=== PATIENT | female | born 1975 | race Asian ===

== ENCOUNTER 2021-01-11 21:01 | Emergency (ER) | payer BC ==
[~2021-01-11] VITALS: Ht 162.6 cm; Wt 63.5 kg
[2021-01-11] MEDS ORDERED: CEFDINIR300 MG PO (22:33)
[2021-01-11 22:47] VITALS: BP 120/72
== END 2021-01-11 22:47 | disposition home or self-care (01) ==
LOC: FSED 21:46
DX: J02.9 Acute pharyngitis, unspecified (principal)
CPT/HCPCS: 83518; 87400; 99282